=== PATIENT | female | born 1935 | race Caucasian/White ===

== ENCOUNTER 2017-01-18 17:48 | Inpatient (IN) ==
--- NOTE | 2017-01-18 18:07 | Emergency Department Report ---
General Adult HPI - General Chief complaint: Medical Emergency Stated complaint: Confusion Time Seen by Provider: 01/18/17 17:56 Source: patient Mode of arrival: ambulatory Limitations: no limitations - History of Present Illness HPI narrative: She is brought in today from [facility]. They have noticed today that she is falling asleep easily and is harder to get to participate in activities. This has been progressive over the last few days. 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 She does have an appointment scheduled on 01/28/[address] Paniagua her oncologist for evaluation and possible restart of her chemo. She has not had any fever or chills or other symptoms. She states that she is just very tired all the time. Onset (ago): day(s) Radiation: non-radiation Severity: moderate Quality: other (weakness) Consistency: constant Relieving factors: none Exacerbating factors: none Associated symptoms: confusion, malaise, other (increased frequency of urination ) Treatments prior to arrival: none - Related Data Home Medications Medication Instructions Recorded Confirmed Ascorbic Acid [Vitamin C] 1,000 mg PO DAILY #0 06/13/12 01/18/17 Pravastatin Sodium 20 mg PO HS #0 11/12/12 01/18/17 Carvedilol 12.5 mg PO BID #0 07/10/15 01/18/17 Acetaminophen [Tylenol] 325 mg PO BID #0 03/18/16 01/18/17 Acetaminophen [Tylenol] 650 mg PO HS #0 03/18/16 01/18/17 Docusate Sodium [Colace] 100 mg PO DAILY #0 03/18/16 01/18/17 Furosemide 20 mg PO DAILY #0 03/18/16 01/18/17 Loratadine 10 mg PO ACB #0 03/18/16 01/18/17 Magnesium Oxide 250 mg PO DAILY #0 tab 03/18/16 01/18/17 Potassium Chloride 10 meq PO DAILY #0 03/18/16 01/18/17 Propylene Glycol/Peg 400/Pf 1 drop BOTH EYES QID #0 03/18/16 01/18/17 [Systane Ultra 0.4-0.3% Eye Drp] Tramadol HCl 50 mg PO Q6HR PRN #0 03/18/16 01/18/17 Bisacodyl 1 supp RECTALLY DAILY PRN #0 07/09/16 01/18/17 Bismuth Subsalicylate [Kaopectate] 1 oz PO TID PRN #0 07/09/16 01/18/17 Calcium Carbonate [Tums] 1 tab PO Q4H PRN #0 07/09/16 01/18/17 FRUIT FIBER 30 ml PO WB #0 07/09/16 01/18/17 Levothyroxine Sodium 125 mcg PO ACB #0 07/09/16 01/18/17 Mag Hydrox/Aluminum Hyd/Simeth 15 ml PO QID PRN #0 07/09/16 01/18/17 [Maalox Advanced Suspension] Magnesium Hydroxide [Milk of 10 ml PO Q3D PRN #0 07/09/16 01/18/17 Magnesia] Meclizine HCl 25 mg PO Q8H PRN #0 07/09/16 01/18/17 Naphazoline/Zinc Sulf/Glycerin 1 drop BOTH EYES PRN PRN #0 07/09/16 01/18/17 [Clear Eyes Itchy Eye Rlf Drops] Nitroglycerin 0.4 mg SL PRN PRN #0 07/09/16 01/18/17 Warfarin Sodium 2 mg PO 1700 #0 07/09/16 01/18/17 Albuterol/Ipratropium [Duoneb] 1 unit AEROSOL Q6H PRN 01/18/17 01/18/17 Hydralazine [Apresoline] 10 mg PO Q8HPRN PRN 01/18/17 01/18/17 Melatonin/Pyridoxine HCl (B6) 5 mg PO HS PRN 01/18/17 01/18/17 [Melatonin 5 mg Tablet] Multivitamin with Minerals 1 each PO DAILY 01/18/17 01/18/17 [One-A-Day Maximum Formula] Oxybutynin Ir [Ditropan] 5 mg PO BID 01/18/17 01/18/17 Ranitidine [Zantac] 150 mg PO BID 01/18/17 01/18/17 Sodium Chloride [[place] Saline] 2 spray NS BID 01/18/17 01/18/17 Allergies Allergy/AdvReac Type Severity Reaction Status Date / Time codeine Allergy Unknown Verified 01/18/17 17:53 Review of Systems Constitutional: Denies: fever, chills, weakness ENT: Denies: ear pain, throat pain, congestion Cardiovascular: Denies: chest pain, palpitations, dyspnea on exertion, edema Respiratory: Denies: cough, dyspnea, wheezes Gastrointestinal: Denies: abdominal pain, nausea, vomiting, diarrhea Genitourinary: Reports: frequency Integumentary: Denies: rash Neurological: Reports: weakness. Denies: headache, numbness, paresthesias PFSH Patient Stated Medical History Multiple Sclerosis Yes Transient Ischemic Attacks ( Yes TIA) Angina Yes Cardiac Arrhythmia Yes: BRADYCARDIA Coronary Artery Disease Yes Hypertension Yes Pneumonia Yes Other GI Yes: CONSTIPATION Anemia Yes Other Hematologic Yes: hx CLL Osteoarthritis Yes Other Musculoskeletal Yes: RIB FX Shingles Yes Post Menopausal Yes CLL - Social History Smoking status: Never smoker Substance use type: does not use Alcohol intake frequency: does not drink Physical Exam - Limitations Limitations: no limitations - General General appearance: alert, in no apparent distress - Normal Exams: ENMT:: No facial trauma, nasal exudates, pharyngeal erythema, or exudates are noted Neck:: Full range of motion, without adenopathy, JVD, bruits or thyromegaly Chest/Respirations:: Clear all fowler, with good airflow, and symmetry bilaterally Cardiovascular:: Regular rate and rhythm, without murmur or gallop, Pulses 2+ all extremities, capillary refill, <2 seconds all extremities Abdomen:: Bowel sounds positive, soft, non-tender, non-distended, no hepatosplenomegaly, masses or bruits noted Lymphatic:: No lymphadenopathy, or lymphedema noted Integumentary:: No rashes, hives, or bruising noted Neurological:: Patient is alert, and oriented Psychiatric:: Patient exhibits, appropriate attention, emotion and affect - Skin Skin exam: Present: pallor Course Vital Signs Temperature 98.1 F 01/18/17 17:53 Pulse Rate 76 01/18/17 17:53 Respiratory Rate 17 01/18/17 17:53 Blood Pressure 115/56 01/18/17 17:53 Pulse Oximetry 94 01/18/17 17:53 Temperature 95.9 F L 01/20/17 08:00 Pulse Rate 81 01/20/17 08:00 Respiratory Rate 20 01/20/17 08:00 Blood Pressure 113/61 01/20/17 08:00 Pulse Oximetry 96 01/20/17 08:00 Medical Decision Making - MDM Narrative Medical decision making narrative: WBC is up to 132. Hgb is down to 7.2 today from 10.8 on 12/28/16. Did call and discuss lab results with Dr Paniagua. He will see her at her scheduled appointment time but does agree that she needs to have a blood transfusion. Discussed with Dr Gurrola who will admit and transfuse tonight. Patient's PCP is Dr Faust. - Differential Diagnosis anemia, viral process, UTI, pneumonia, electrolyte imbalance, - Lab Data Result diagrams: 01/20/17 04:30 01/20/17 04:30 Lab Results 01/18/17 01/18/17 01/18/17 Range/Units 18:25 18:25 18:25 WBC 132.4 H* (4.5-11.0) T/MM3 RBC 1.86 L (4.00-5.20) M/MM3 Hgb 7.2 L (12-16) GM/DL Hct 23.4 L (36-46) % MCV 125.8 H (80-100) UM3 MCH 38.7 H (26-34) UUG MCHC 30.8 L (31-37) GM/DL RDW Std Deviation 105.2 H (36.9-50.2) FL Plt Count 250 (130-400) T/MM3 MPV 9.4 (9.4-12.4) UM3 Immature Gran % (Auto) Not performed Neut % (Auto) Not performed Lymph % (Auto) Not performed [place] % (Auto) Not performed Eos % (Auto) Not performed Baso % (Auto) Not performed Neut # Not performed Lymph # Not performed [place] # Not performed Eos # Not performed Baso # Not performed Abs Immat Gran (auto) Not performed Neutrophils % (Manual) 5.0 L (33-66) % Lymphocytes % (Manual) 94.0 H (23-45) % Monocytes % (Manual) 1.0 (0-9.0) % Neutrophils # (Manual) 6.6 (1.8-7.7) T/MM3 Lymphocytes # (Manual) 124.5 H (1-4.8) T/MM3 Monocytes # (Manual) 1.3 H (0-0.8) T/MM3 Smudge Cells 3+ Polychromasia 2+ Poikilocytosis 3+ Anisocytosis 3+ Macrocytosis 2+ Spherocytes 2+ RBC Morph Comment Abnormal Absolute Retic (0.0300-0.0900) T/MM3 Percent Retic (0.6-1.7) % Immature Retic Fraction (3.3-14.5) % Retic Hgb Content CHr (30.8-36.6) PG Haptoglobin (36-195) mg/dL INR (0.99-1.21) Turbidity < 20 (0-20) Sodium 144 (134-144) MEQ/L Potassium 4.4 (3.6-5) MEQ/L Chloride 107 (98-107) MEQ/L Carbon Dioxide 27 (22-30) MEQ/L Anion Gap 10 (5-15) MEQ/L BUN 30.0 H (7-17) MG/DL Creatinine 1.5 H (0.7-1.2) MG/DL GFR Calculation 33 BUN/Creatinine Ratio 20 (6-26) RATIO Glucose 116 H (65-110) MG/DL Calculated Osmolality 284 H (261-280) MOSM/KG Calcium 9.1 (8.4-10.2) MG/DL Total Bilirubin 4.20 H (0.20-1.30) MG/DL Conjugated Bilirubin (0.00-0.30) MG/DL Unconjugated Bilirubin (0.00-11.10) MG/DL Icterus Index < 2 (0-7) AST 76 H (14-36) U/L ALT 36 (9-52) U/L Alkaline Phosphatase 85 (38-126) U/L Lactate Dehydrogenase (313-618) U/L Troponin I 0.013 (0-0.12) ng/ml Total Protein 6.5 (6.3-8.2) G/DL Albumin 4.5 (3.5-5.0) G/DL Globulin 2.0 L (2.4-3.6) G/DL Albumin/Globulin Ratio 2.3 H (1.1-2.2) RATIO Specimen Hemolysis < 15 (0-25) Ur Collection Type Urine, clean catch Urine Color Yellow (YELLOW) Urine Clarity Clear Urine pH 5.5 (5.0-8.0) Ur Specific [place] 1.020 (1.015-1.025) Urine Protein Negative (NEGATIVE) Urine Glucose (UA) Negative (NEGATIVE) Urine Ketones Negative (NEGATIVE) Urine Occult Blood Trace-intact (NEGATIVE) Urine Nitrate Negative (NEGATIVE) Urine Bilirubin Negative (NEGATIVE) Urine Urobilinogen 0.2 (NORMAL) EU/DL Ur Leukocyte Esterase Negative (NEGATIVE) Urinalysis Comment Microscopic not ind. Crossmatch (AHG) 01/18/17 01/18/17 01/19/17 Range/Units 18:25 21:37 05:14 WBC 114.7 H* (4.5-11.0) T/MM3 RBC 1.74 L (4.00-5.20) M/MM3 Hgb 6.7 L (12-16) GM/DL Hct 21.9 L (36-46) % MCV 125.9 H (80-100) UM3 MCH 38.5 H (26-34) UUG MCHC 30.6 L (31-37) GM/DL RDW Std Deviation 103.6 H (36.9-50.2) FL Plt Count 224 (130-400) T/MM3 MPV 9.5 (9.4-12.4) UM3 Immature Gran % (Auto) Not performed Neut % (Auto) Not performed Lymph % (Auto) Not performed [place] % (Auto) Not performed Eos % (Auto) Not performed Baso % (Auto) Not performed Neut # Not performed Lymph # Not performed [place] # Not performed Eos # Not performed Baso # Not performed Abs Immat Gran (auto) Not performed Neutrophils % (Manual) 7.0 L (33-66) % Lymphocytes % (Manual) 92.0 H (23-45) % Monocytes % (Manual) 1.0 (0-9.0) % Neutrophils # (Manual) 8.0 H (1.8-7.7) T/MM3 Lymphocytes # (Manual) 105.5 H (1-4.8) T/MM3 Monocytes # (Manual) 1.1 H (0-0.8) T/MM3 Smudge Cells 3+ Polychromasia 2+ Poikilocytosis 3+ Anisocytosis 3+ Macrocytosis 2+ Spherocytes 2+ RBC Morph Comment Abnormal Absolute Retic (0.0300-0.0900) T/MM3 Percent Retic (0.6-1.7) % Immature Retic Fraction (3.3-14.5) % Retic Hgb Content CHr (30.8-36.6) PG Haptoglobin (36-195) mg/dL INR 1.91 H (0.99-1.21) Turbidity (0-20) Sodium (134-144) MEQ/L Potassium (3.6-5) MEQ/L Chloride (98-107) MEQ/L Carbon Dioxide (22-30) MEQ/L Anion Gap (5-15) MEQ/L BUN (7-17) MG/DL Creatinine (0.7-1.2) MG/DL GFR Calculation BUN/Creatinine Ratio (6-26) RATIO Glucose (65-110) MG/DL Calculated Osmolality (261-280) MOSM/KG Calcium (8.4-10.2) MG/DL Total Bilirubin (0.20-1.30) MG/DL Conjugated Bilirubin (0.00-0.30) MG/DL Unconjugated Bilirubin (0.00-11.10) MG/DL Icterus Index (0-7) AST (14-36) U/L ALT (9-52) U/L Alkaline Phosphatase (38-126) U/L Lactate Dehydrogenase (313-618) U/L Troponin I (0-0.12) ng/ml Total Protein (6.3-8.2) G/DL Albumin (3.5-5.0) G/DL Globulin (2.4-3.6) G/DL Albumin/Globulin Ratio (1.1-2.2) RATIO Specimen Hemolysis (0-25) Ur Collection Type Urine Color (YELLOW) Urine Clarity Urine pH (5.0-8.0) Ur Specific [place] (1.015-1.025) Urine Protein (NEGATIVE) Urine Glucose (UA) (NEGATIVE) Urine Ketones (NEGATIVE) Urine Occult Blood (NEGATIVE) Urine Nitrate (NEGATIVE) Urine Bilirubin (NEGATIVE) Urine Urobilinogen (NORMAL) EU/DL Ur Leukocyte Esterase (NEGATIVE) Urinalysis Comment Crossmatch (AHG) See Detail 01/19/17 01/19/17 01/19/17 Range/Units 05:14 12:27 12:27 WBC (4.5-11.0) T/MM3 RBC (4.00-5.20) M/MM3 Hgb (12-16) GM/DL Hct (36-46) % MCV (80-100) UM3 MCH (26-34) UUG MCHC (31-37) GM/DL RDW Std Deviation (36.9-50.2) FL Plt Count (130-400) T/MM3 MPV (9.4-12.4) UM3 Immature Gran % (Auto) Neut % (Auto) Lymph % (Auto) [place] % (Auto) Eos % (Auto) Baso % (Auto) Neut # Lymph # [place] # Eos # Baso # Abs Immat Gran (auto) Neutrophils % (Manual) (33-66) % Lymphocytes % (Manual) (23-45) % Monocytes % (Manual) (0-9.0) % Neutrophils # (Manual) (1.8-7.7) T/MM3 Lymphocytes # (Manual) (1-4.8) T/MM3 Monocytes # (Manual) (0-0.8) T/MM3 Smudge Cells Polychromasia Poikilocytosis Anisocytosis Macrocytosis Spherocytes RBC Morph Comment Absolute Retic 0.3432 H (0.0300-0.0900) T/MM3 Percent Retic 20.6 H (0.6-1.7) % Immature Retic Fraction 34.3 H (3.3-14.5) % Retic Hgb Content CHr 40.2 H (30.8-36.6) PG Haptoglobin 2 L (36-195) mg/dL INR (0.99-1.21) Turbidity < 20 (0-20) Sodium 145 H (134-144) MEQ/L Potassium 4.3 (3.6-5) MEQ/L Chloride 109 H (98-107) MEQ/L Carbon Dioxide 29 (22-30) MEQ/L Anion Gap 7 (5-15) MEQ/L BUN 30.0 H (7-17) MG/DL Creatinine 1.3 H D (0.7-1.2) MG/DL GFR Calculation 39 BUN/Creatinine Ratio 23 (6-26) RATIO Glucose 108 (65-110) MG/DL Calculated Osmolality 286 H (261-280) MOSM/KG Calcium 9.1 (8.4-10.2) MG/DL Total Bilirubin 4.00 H (0.20-1.30) MG/DL Conjugated Bilirubin 0.00 (0.00-0.30) MG/DL Unconjugated Bilirubin 3.40 (0.00-11.10) MG/DL Icterus Index < 2 (0-7) AST 70 H (14-36) U/L ALT 30 (9-52) U/L Alkaline Phosphatase 72 (38-126) U/L Lactate Dehydrogenase 2465 H (313-618) U/L Troponin I (0-0.12) ng/ml Total Protein 5.7 L (6.3-8.2) G/DL Albumin 3.9 (3.5-5.0) G/DL Globulin 1.8 L (2.4-3.6) G/DL Albumin/Globulin Ratio 2.2 (1.1-2.2) RATIO Specimen Hemolysis < 15 (0-25) Ur Collection Type Urine Color (YELLOW) Urine Clarity Urine pH (5.0-8.0) Ur Specific [place] (1.015-1.025) Urine Protein (NEGATIVE) Urine Glucose (UA) (NEGATIVE) Urine Ketones (NEGATIVE) Urine Occult Blood (NEGATIVE) Urine Nitrate (NEGATIVE) Urine Bilirubin (NEGATIVE) Urine Urobilinogen (NORMAL) EU/DL Ur Leukocyte Esterase (NEGATIVE) Urinalysis Comment Crossmatch (AHG) Disposition Clinical Impression: Anemia Qualifiers: Anemia type: unspecified type Qualified Code(s): D64.9 - Anemia, unspecified Disposition: 02 To [facility] Condition: Stable Time of Disposition: 18:15 - Seen By: midlevel
[2017-01-18] MEDS: SALINE FLUSH 10ml SYRINGE IVF PRN ×2 (18:32→22:55)
[2017-01-18] MEDS ORDERED: ONDANSETRON 4 MG/2 ML INJECTION IVP PRN (21:16)
[2017-01-18] MEDS ORDERED: ACETAMINOPHEN 325 MG TABLET PO PRN (21:16)
[2017-01-18] MEDS ORDERED: NS FLUSH BAG 500ml IV PRN ×2 (21:48→22:13)
--- NOTE | 2017-01-18 21:50 | History & Physical Report ---
History of Present Illness Date: 01/18/17 Chief complaint: sleepiness HPI: The pt is a 81 yo with a known history of CLL who stopped treatment 2 years ago but recently on 12/28/16 noted that her WBC was elevated again to 85,000. Over the past 2 days, the pt c/o sleeping all the time and is having trouble staying awake, become dyspneic with minimal exertion. It was noted in the ER that her hgb was 7.2 ( 10.8 3 weeks ago). Review of Systems - Constitutional Constitutional: Present: as per HPI, anorexia, daytime sleepiness, fatigue, lethargy. Absent: fever(s), headache(s) - Cardiovascular Cardiovascular: Absent: chest pain, palpitations, syncope, edema - Respiratory Respiratory: Present: dyspnea. Absent: cough - Gastrointestinal Gastrointestinal: Absent: abdominal pain, constipation, diarrhea - Musculoskeletal Musculoskeletal: Absent: back pain PFSH CLL CAD, s/p stent HTN CVA/ multiple TIA Family History: CAD/ HTN parents - Social History Smoking status: Never smoker Alcohol intake: never Housing: assisted living facility Household members: none Medications Home Medications Medication Instructions Recorded Confirmed Type Ascorbic Acid [Vitamin C] 1,000 mg PO DAILY #0 06/13/12 01/18/17 History Pravastatin Sodium 20 mg PO HS #0 11/12/12 01/18/17 History Carvedilol 12.5 mg PO BID #0 07/10/15 01/18/17 History Acetaminophen [Tylenol] 325 mg PO BID #0 03/18/16 01/18/17 History Acetaminophen [Tylenol] 650 mg PO HS #0 03/18/16 01/18/17 History Docusate Sodium [Colace] 100 mg PO DAILY #0 03/18/16 01/18/17 History Furosemide 20 mg PO DAILY #0 03/18/16 01/18/17 History Loratadine 10 mg PO ACB #0 03/18/16 01/18/17 History Magnesium Oxide 250 mg PO DAILY #0 tab 03/18/16 01/18/17 History Potassium Chloride 10 meq PO DAILY #0 03/18/16 01/18/17 History Propylene Glycol/Peg 400/Pf 1 drop BOTH EYES QID #0 03/18/16 01/18/17 History [Systane Ultra 0.4-0.3% Eye Drp] Tramadol HCl 50 mg PO Q6HR PRN #0 03/18/16 01/18/17 History Bisacodyl 1 supp RECTALLY DAILY PRN #0 07/09/16 01/18/17 History Bismuth Subsalicylate [Kaopectate] 1 oz PO TID PRN #0 07/09/16 01/18/17 History Calcium Carbonate [Tums] 1 tab PO Q4H PRN #0 07/09/16 01/18/17 History FRUIT FIBER 30 ml PO WB #0 07/09/16 01/18/17 History Levothyroxine Sodium 125 mcg PO ACB #0 07/09/16 01/18/17 History Mag Hydrox/Aluminum Hyd/Simeth 15 ml PO QID PRN #0 07/09/16 01/18/17 History [Maalox Advanced Suspension] Magnesium Hydroxide [Milk of 10 ml PO Q3D PRN #0 07/09/16 01/18/17 History Magnesia] Meclizine HCl 25 mg PO Q8H PRN #0 07/09/16 01/18/17 History Naphazoline/Zinc Sulf/Glycerin 1 drop BOTH EYES PRN PRN #0 07/09/16 01/18/17 History [Clear Eyes Itchy Eye Rlf Drops] Nitroglycerin 0.4 mg SL PRN PRN #0 07/09/16 01/18/17 History Warfarin Sodium 2 mg PO 1700 #0 07/09/16 01/18/17 History Albuterol/Ipratropium [Duoneb] 1 unit AEROSOL Q6H PRN 01/18/17 01/18/17 History Hydralazine [Apresoline] 10 mg PO Q8HPRN PRN 01/18/17 01/18/17 History Melatonin/Pyridoxine HCl (B6) 5 mg PO HS PRN 01/18/17 01/18/17 History [Melatonin 5 mg Tablet] Multivitamin with Minerals 1 each PO DAILY 01/18/17 01/18/17 History [One-A-Day Maximum Formula] Oxybutynin Ir [Ditropan] 5 mg PO BID 01/18/17 01/18/17 History Ranitidine [Zantac] 150 mg PO BID 01/18/17 01/18/17 History Sodium Chloride [[place] Saline] 2 spray NS BID 01/18/17 01/18/17 History Allergies Allergy/AdvReac Type Severity Reaction Status Date / Time codeine Allergy Unknown Verified 01/18/17 17:53 Exam Vital Signs: Temperature 98.1 F 01/18/17 17:53 Pulse Rate 79 01/18/17 19:00 Respiratory Rate 17 01/18/17 19:00 Blood Pressure 128/61 01/18/17 19:00 Pulse Oximetry 94 01/18/17 19:00 - Constitutional Present: no acute distress, well nourished - Routine HEENT Exam Head: Present: normocephalic Eye: Present: conjunctivae pink - Routine Neck Exam Present: supple - Routine Respiratory Exam Present: CTA bilaterally - Routine Cardiovascular Exam Present: RRR, no murmur - Routine Abdominal Exam Present: soft, normoactive bowel sounds, non distended, non tender Results - Labs CBC & Chem 7: 01/18/17 18:25 01/18/17 18:25 Assessment and Plan (1) CLL (chronic lymphoid leukemia) in relapse Current visit: Yes Status: Acute 01/18/17 21:54 has appointment with Harish on [place] on Jan.28, ER contacted him and he recommends no treatment at this time. (2) Anemia Current visit: Yes Status: Acute 01/18/17 21:55 transfusing one unit , recheck level in am. (3) HTN (hypertension) Current visit: Yes Status: Acute 01/18/17 21:55 monitor, restart home meds. (4) HTN (hypertension) Current visit: Yes Status: Acute DVT Prophylaxis: SCD's GI Prophylaxis: Protonix Resuscitation Status: Full Code Hospital Course Summary Disclaimer: The visit summary below is not to be considered part of the above Progress Note.
--- NOTE | 2017-01-19 08:06 | XRay Report ---
INDICATION: dyspnea PROCEDURE: CHEST 2-VIEWS UPRIGHT (PA & LAT) Encounter: Initial COMPARISON: July 09, 2016 Findings: The lungs are stable in appearance without new focal airspace consolidation. There is no pleural effusion or pneumothorax. The heart size, pulmonary vascularity and mediastinal contours are unchanged. IMPRESSION: Stable appearance of the chest without acute cardiopulmonary disease. .
[2017-01-19 08:10] VITALS: BMI 30.3
[2017-01-19] MEDS ORDERED: CALCIUM CARBONATE Chewable 750mg TABLET PO PRN ×2 (12:03→13:15)
[2017-01-19] MEDS ORDERED: ALBUTEROL/IPRATROPIUM 2.5mg-0.5mg/3ml NEB AEROSOL PRN (12:03)
[2017-01-19] MEDS ORDERED: MELATONIN 5 MG TABLET PO PRN (12:03)
[2017-01-19] MEDS ORDERED: PredniSONE 20 MG TABLET PO ONE (13:32)
[2017-01-19] MEDS ORDERED: PNEUMOCOCCAL 13 VACCINE 0.5ml INJECTION IM ONE (14:29)
--- NOTE | 2017-01-19 16:03 | History & Physical Report ---
History of Present Illness Date: 01/19/17 Chief complaint: excessive drowsiness, weakness HPI: The pt is a 81 yo with a known history of CLL monitored by Dr. Clinton Paniagua with last labs on 12/28/16 when WBC was elevated at 85.9K and hemoglobin was 10.8. Over the past 3 days the pt has c/o sleeping all the time and is having generalized weakness, become dyspneic with minimal exertion. She additionally reports that her urine has been dark yellow and that her skin has been yellow. She denied lightheadedness, chest pain, palpitations, or falls. She is not aware of any blood loss specifically denying melena, hematuria, or hematemesis. She denies any of the presenting symptoms prior to 3 days ago. In the emergency room hemoglobin was 7.2 and the patient was hospitalized for symptomatic anemia and possible blood transfusion. Bilirubin on admission was elevated at 4.2 and MCV 125.8. White count had increased to 132.4 with 94% lymphocytes. Review of Systems Comprehensive ROS: completed and no additional positive findings except those as stated (chronic hearing loss, has a hearing aid but doesn't use it; generalized weakness which patient attributes to a history of multiple sclerosis , no focal sensory deficits. Patient has a chronic cough since pneumonia last year with chronic sputum production. She denied myalgias or arthralgias other than chronic sacral pain as noted by Dr. Rouse. Remainder of review of systems as previously recorded by Dr. 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 - Social History Smoking status: Never smoker Substance use type: does not use Alcohol intake frequency: does not drink Current occupational status: retired (missionary) Current residence: Assisted Living ([facility]) Social history: PCP-Dr. Lavonne Faust Hematology-Dr. Clinton Paniagua DPOA-daughter Nitza Storm CODE STATUS-DO NOT RESUSCITATE Medications Home Medications Medication Instructions Recorded Confirmed Type Ascorbic Acid [Vitamin C] 1,000 mg PO DAILY #0 06/13/12 01/18/17 History Pravastatin Sodium 20 mg PO HS #0 11/12/12 01/18/17 History Carvedilol 12.5 mg PO BID #0 07/10/15 01/18/17 History Acetaminophen [Tylenol] 325 mg PO BID #0 03/18/16 01/18/17 History Acetaminophen [Tylenol] 650 mg PO HS #0 03/18/16 01/18/17 History Docusate Sodium [Colace] 100 mg PO DAILY #0 03/18/16 01/18/17 History Furosemide 20 mg PO DAILY #0 03/18/16 01/18/17 History Loratadine 10 mg PO ACB #0 03/18/16 01/18/17 History Magnesium Oxide 250 mg PO DAILY #0 tab 03/18/16 01/18/17 History Potassium Chloride 10 meq PO DAILY #0 03/18/16 01/18/17 History Propylene Glycol/Peg 400/Pf 1 drop BOTH EYES QID #0 03/18/16 01/18/17 History [Systane Ultra 0.4-0.3% Eye Drp] Tramadol HCl 50 mg PO Q6HR PRN #0 03/18/16 01/18/17 History Bisacodyl 1 supp RECTALLY DAILY PRN #0 07/09/16 01/18/17 History Bismuth Subsalicylate [Kaopectate] 1 oz PO TID PRN #0 07/09/16 01/18/17 History Calcium Carbonate [Tums] 1 tab PO Q4H PRN #0 07/09/16 01/18/17 History FRUIT FIBER 30 ml PO WB #0 07/09/16 01/18/17 History Levothyroxine Sodium 125 mcg PO ACB #0 07/09/16 01/18/17 History Mag Hydrox/Aluminum Hyd/Simeth 15 ml PO QID PRN #0 07/09/16 01/18/17 History [Maalox Advanced Suspension] Magnesium Hydroxide [Milk of 10 ml PO Q3D PRN #0 07/09/16 01/18/17 History Magnesia] Meclizine HCl 25 mg PO Q8H PRN #0 07/09/16 01/18/17 History Naphazoline/Zinc Sulf/Glycerin 1 drop BOTH EYES PRN PRN #0 07/09/16 01/18/17 History [Clear Eyes Itchy Eye Rlf Drops] Nitroglycerin 0.4 mg SL PRN PRN #0 07/09/16 01/18/17 History Warfarin Sodium 2 mg PO 1700 #0 07/09/16 01/18/17 History Albuterol/Ipratropium [Duoneb] 1 unit AEROSOL Q6H PRN 01/18/17 01/18/17 History Hydralazine [Apresoline] 10 mg PO Q8HPRN PRN 01/18/17 01/18/17 History Melatonin/Pyridoxine HCl (B6) 5 mg PO HS PRN 01/18/17 01/18/17 History [Melatonin 5 mg Tablet] Multivitamin with Minerals 1 each PO DAILY 01/18/17 01/18/17 History [One-A-Day Maximum Formula] Oxybutynin Ir [Ditropan] 5 mg PO BID 01/18/17 01/18/17 History Ranitidine [Zantac] 150 mg PO BID 01/18/17 01/18/17 History Sodium Chloride [Sloughhouse Saline] 2 spray NS BID 01/18/17 01/18/17 History Allergies Allergy/AdvReac Type Severity Reaction Status Date / Time codeine Allergy Unknown Verified 01/18/17 17:53 Exam Vital Signs: Temperature 96.1 F L 01/19/17 07:59 Pulse Rate 83 01/19/17 07:59 Respiratory Rate 16 01/19/17 13:40 Blood Pressure 114/61 01/19/17 07:59 Pulse Oximetry 95 01/19/17 13:40 EXAM: General-drowsy female, NAD; has to be repetitively stimulated to respond to questions HEENT-PERRL, right exotropia, conjunctiva clear, scleral icterus, facial structures symmetric, oropharynx clear, neck supple and without adenopathy Lungs-respirations nonlabored, decreased airflow but clear Cardiac-regular rhythm, S1-S2 Abd-soft, nontender, without palpable mass Ext-without edema Skin-mild jaundice/pallor MS-minor degenerative changes small joints of the hands, no active synovitis Neuro-proximal lower extremity weakness, distal strength good, no drift upper extremities, no tremors, normal motor tone; sensation intact to light touch 4 extremities; cranial nerves notable for right exotropia and mild right ptosis. 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 Blood bank unable to match blood to date due to antibodies. Discussed with Dr. Paniagua-initiate steroids with prednisone 1 mg/kg in split doses. Will hold off on transfusion at this time. Haptoglobin and reticulocyte count pending. Continue to monitor hemoglobin, IV fluids if needed although oral intake improved this afternoon. Patient is on chronic warfarin therapy-indication unclear at present, call placed to her son to clarify. Continue in the intervening time. Continue beta vazquez for coronary disease/HTN. PT/OT consult Patient converted to inpatient status due to presence of dyspnea in conjunction with worsening anemia. Old records/outpatient records reviewed, x-ray/EKG reviewed by myself, discussed with Dr. Paniagua, laboratory data reviewed. Sepsis Assessment - Evaluation Sepsis screening result: No Definite Risk Hospital Course Summary Disclaimer: The visit summary below is not to be considered part of the above Progress Note. Hospital Course: 01/19/17 16:39-admission Presentation consistent with evolving anemia; data supports development of hemolytic anemia in conjunction with worsening CLL. Blood bank unable to match blood to date due to antibodies. Discussed with Dr. Paniagua-initiate steroids with prednisone 1 mg/kg in split doses. Will hold off on transfusion at this time. Haptoglobin and reticulocyte count pending. Continue to monitor hemoglobin, IV fluids if needed although oral intake improved this afternoon. Patient is on chronic warfarin therapy-indication unclear at present, call placed to her son to clarify. Continue in the intervening time. Continue beta vazquez for coronary disease/HTN. PT/OT consult Patient converted to inpatient status due to presence of dyspnea in conjunction with worsening anemia.
[2017-01-19] MEDS ORDERED: TRAMADOL 50 MG TABLET PO PRN (16:35)
[2017-01-19] MEDS ORDERED: WARFARIN 2 MG TABLET PO ONE (17:00)
--- NOTE | 2017-01-19 17:03 | Pharmacy Consult ---
Pharmacy Consult-Warfarin - Laboratory Information 81yo F, wt 75.3kg, admitted with hemolytic anemia, jaundice 2ndary to CLL. Comorbidities of HTN, CAD, CVA, Hypokalemia, Alzheimer's Dementia. Home dose of Warfarin reported as 2mg po daily, last taken on 01/18 1700. INR = 1.91 No bridge therapy at this time. No drug-drug interactions noted. Will give Warfarin 2mg today. INR's daily until therapeutic range achieved. Target INR range = 2-3 Thank you
[2017-01-19] MEDS: PredniSONE 10 MG TABLET PO SCH ×2 (17:06→21:36)
[2017-01-19] MEDS: SYSTANE EYE DROPS 0.7ml EACH EYE SCH ×3 (17:07→21:43)
[2017-01-19] MEDS: CARVEDILOL 25 MG TABLET PO SCH (17:40)
[2017-01-19] MEDS ORDERED: PNEUMOCOCCAL VAC ADMIN CHARGE INJ ONE (18:45)
[2017-01-19] MEDS: PRAVASTATIN 20 MG TABLET PO SCH (21:42)
[2017-01-19] MEDS: SALINE FLUSH 10ml SYRINGE IVF PRN (21:43)
[2017-01-19] MEDS: RANITIDINE 150 MG TABLET PO SCH (21:43)
[2017-01-20] MEDS: LORATADINE 10 MG TABLET PO SCH (06:27)
[2017-01-20] MEDS: LEVOTHYROXINE 125 MCG TABLET PO SCH (06:27)
[2017-01-20] MEDS: SALINE FLUSH 10ml SYRINGE IVF PRN ×2 (06:31→21:26)
[2017-01-20] MEDS: PredniSONE 10 MG TABLET PO SCH ×2 (08:04→17:17)
[2017-01-20] MEDS: CARVEDILOL 25 MG TABLET PO SCH ×2 (08:04→17:17)
[2017-01-20] MEDS: MAGNESIUM OXIDE 400 MG TABLET PO SCH (08:58)
[2017-01-20] MEDS: SENNA + DOCUSATE TABLET PO SCH (08:59)
[2017-01-20] MEDS: RANITIDINE 150 MG TABLET PO SCH ×2 (08:59→21:24)
[2017-01-20] MEDS: POLYETHYL GLYCOL 3350 17gm PACKET PO SCH (08:59)
[2017-01-20] MEDS: SYSTANE EYE DROPS 0.7ml EACH EYE SCH ×4 (08:59→21:20)
--- NOTE | 2017-01-20 09:03 | Pharmacy Consult ---
Pharmacy Consult-Warfarin - Laboratory Information 01/20/17 04:30 INR 1.76 H 81yo F, wt 75.3kg, admitted with hemolytic anemia, jaundice 2ndary to CLL. Comorbidities of HTN, CAD, CVA, Hypokalemia, Alzheimer's Dementia. Home dose of Warfarin reported as 2mg po daily, last taken on 01/18 1700. No bridge therapy at this time. No drug-drug interactions noted. Received Warfarin 2mg yesterday late afternoon. INR today a little lower. Will give Warfarin 3mg. INR's daily until therapeutic range achieved. Target INR range = 2-3 Thank you
--- NOTE | 2017-01-20 11:16 | Progress Note ---
<Megan Long - Last Filed: 01/20/17 11:12> Subjective: Kateryna is feeling much better today. She's more alert (she slept most of the day yesterday) and she has more of an appetite. Her [id number] comments that she doesn't appear as yellow. Kateryna denies feeling short of breath today. Her goal is to walk twice today. She notes a "big" stomach, but adds that this isn't new. Objective Vital signs: Temperature 95.9 F L 01/20/17 08:00 Pulse Rate 81 01/20/17 08:00 Respiratory Rate 20 01/20/17 08:00 Blood Pressure 113/61 01/20/17 08:00 Pulse Oximetry 96 01/20/17 08:00 Oxygen Delivery Method Room Air Height/Weight/BMI: Weight 74.9 kg - Constitutional Present: no acute distress, well nourished, well developed - Routine HEENT Exam Eye: Absent: PERRL (right exotropia; keeps right eyelid closed preferentially during constipation) ENT: Present: mucous membranes moist, oropharynx clear - Routine Respiratory Exam Present: CTA bilaterally - Routine Cardiovascular Exam Present: RRR, S1, S2, murmur (2-3/6) - Routine Abdominal Exam Present: soft, normoactive bowel sounds, non tender, distended - Routine Extremities Exam Present: no edema, pulses intact, normal capillary refill - Routine Musculoskeletal Exam Musculoskeletal: Present: no clubbing or cyanosis - Routine Skin Exam Present: intact, dry, warm, jaundice (mild) - Routine Neurological Exam Present: alert, oriented X3 - Routine Psychiatric Exam Present: normal affect, normal thought process, cooperative Results - Labs CBC & Chem 7: 01/20/17 04:30 01/20/17 04:30 Assessment and Plan (1) CLL (chronic lymphoid 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 Carey. Continue prednisone for hemolytic anemia. She is no longer feeling dyspneic, and is more awake today. Hemoglobin has improved slightly to 6.9. Haptoglobin was markedly low at 2 mg/dL, and absolute reticulocyte count was elevated at 0.34, percent reticulocyte was also high at 20.6, immature reticulocyte fraction was high at 34.3. Iron, TIBC and percent sat, and vitamin B12 are pending. Her total bilirubin was not assessed today. White count has increased from 114-146, which is highly suspected to be a steroid effect. Lymphocytes have remained stable. INR still subtherapeutic at 1.76. The patient is on Coumadin for paroxysmal atrial fibrillation. Echocardiogram in 2014 showed an EF of 65%, grade 2, LVDD, mild valvular disease, and mild pulmonary hypertension with pulmonary artery pressure 37 mmHg. Her student life coordinator is Dr. Madrid. Admission EKG reviewed: She is in sinus rhythm. High risk med (Coumadin) in conjunction with anemia. Sepsis Assessment - Evaluation Sepsis screening result: No Definite Risk Hospital Course Summary Disclaimer: The visit summary below is not to be considered part of the above Progress Note. Hospital Course: 01/19/17 16:39-admission Presentation consistent with evolving anemia; data supports development of hemolytic anemia in conjunction with worsening CLL. Blood bank unable to match blood to date due to antibodies. Discussed with Dr. Paniagua-initiate steroids with prednisone 1 mg/kg in split doses. Will hold off on transfusion at this time. Haptoglobin and reticulocyte count pending. Continue to monitor hemoglobin, IV fluids if needed although oral intake improved this afternoon. Patient is on chronic warfarin therapy-indication unclear at present, call placed to her son to clarify. Continue in the intervening time. Continue beta vazquez for coronary disease/HTN. PT/OT consult Patient converted to inpatient status due to presence of dyspnea in conjunction with worsening anemia. 01/20/17. Continue Prednisone for hemolytic anemia. She is no longer feeling dyspneic, and is more awake today. Hemoglobin has improved slightly to 6.9. Haptoglobin was markedly low at 2 mg/dL, and absolute reticulocyte count was elevated at 0.34, percent reticulocyte was also high at 20.6, immature reticulocyte fraction was high at 34.3. Iron, TIBC and percent sat, and vitamin B12 are pending. Her total bilirubin was not assessed today. White count has increased from 114-146, which is highly suspected to be a steroid effect. Lymphocytes have remained stable. INR still subtherapeutic at 1.76. The patient is on Coumadin for paroxysmal atrial fibrillation. Echocardiogram in 2014 showed an EF of 65%, grade 2, LVDD, mild valvular disease, and mild pulmonary hypertension with pulmonary artery pressure 37 mmHg. Her student life coordinator is Dr. Madrid. Admission EKG reviewed: She is in sinus rhythm. 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 I reviewed the chart, the patient's history, and the COATING MACHINE FEEDER/PA's documented findings as above. We discussed and formulated the assessment and plan as above with additions as below: Mrs. Mtz reports feeling much better today and reports that she is going to go walking and that she was able to eat last night and again this morning. Her [id number] indicated that her color looks better. Patient denies dyspnea or chest pain. NAD, alert Respirations are nonlabored with good airflow, faint crackles at the bases bilaterally Mild icterus-more notable in the sclera and skin today. Hemoglobin stable overnight, white count up consistent with steroid administration. Continue to monitor cautiously. Reassess liver enzymes in the morning. Haptoglobin 2, 20.6% reticulocytes (40.2% corrected for hemoglobin) Hospital Course Summary Disclaimer: The visit summary below is not to be considered part of the above Progress Note.
[2017-01-20] MEDS ORDERED: WARFARIN 3 MG TABLET PO SCH (12:00)
[2017-01-20] MEDS: PRAVASTATIN 20 MG TABLET PO SCH (22:02)
[2017-01-21] MEDS: LORATADINE 10 MG TABLET PO SCH (06:16)
[2017-01-21] MEDS: LEVOTHYROXINE 125 MCG TABLET PO SCH (06:16)
--- NOTE | 2017-01-21 07:27 | Pharmacy Consult ---
Pharmacy Consult-Warfarin - Laboratory Information 01/20/17 01/21/17 04:30 04:01 INR 1.76 H 2.25 H - Consult Information Ordered warfarin 2.5mg po at noon today. Will continue to monitor. Thank you.
[2017-01-21] MEDS: PredniSONE 10 MG TABLET PO SCH ×2 (08:46→18:27)
[2017-01-21] MEDS: MAGNESIUM OXIDE 400 MG TABLET PO SCH (08:46)
[2017-01-21] MEDS: RANITIDINE 150 MG TABLET PO SCH ×2 (08:46→22:08)
[2017-01-21] MEDS: SENNA + DOCUSATE TABLET PO SCH (08:47)
[2017-01-21] MEDS: CARVEDILOL 25 MG TABLET PO SCH ×2 (08:47→18:27)
[2017-01-21] MEDS: SALINE FLUSH 10ml SYRINGE IVF PRN ×2 (08:48→22:09)
[2017-01-21] MEDS: SYSTANE EYE DROPS 0.7ml EACH EYE SCH ×4 (08:49→22:09)
[2017-01-21] MEDS: POLYETHYL GLYCOL 3350 17gm PACKET PO SCH (08:49)
--- NOTE | 2017-01-21 10:54 | Progress Note ---
<Megan Long - Last Filed: 01/21/17 10:51> Subjective: I spoke with Kateryna's daughter in law, who stated that Kateryna has been having a good morning. She ate an excellent breakfast, has been up and moving around, hasn't appeared short of breath. She's her usual "spunky" self. We reviewed lab values and discussed indication for Coumadin and risk:benefit. I then saw Kateryna , who was resting in bed. She opened her eyes immediately when I entered the room. She smiled but didn't remember me from yesterday. She states that after her bath this morning she was in the chair for 2-3 hours, so now is feeling tired. She denies dyspnea or chest pain. No abdominal pain or nausea. Objective Vital signs: Temperature 97.2 F 01/21/17 07:31 Pulse Rate 72 01/21/17 07:31 Respiratory Rate 18 01/21/17 07:31 Blood Pressure 109/60 01/21/17 07:31 Pulse Oximetry 97 01/21/17 07:31 Oxygen Delivery Method Room Air Height/Weight/BMI: Weight 75.3 kg - Constitutional Present: no acute distress, well nourished, well developed - Routine HEENT Exam Eye: Present: conjunctival icterus (faint) ENT: Present: mucous membranes moist, oropharynx clear - Routine Respiratory Exam Present: CTA bilaterally (listened anteriorly) - Routine Cardiovascular Exam Present: S1, S2, murmur (3/6 systolic) - Routine Abdominal Exam Present: soft, normoactive bowel sounds, non tender - Routine Extremities Exam Present: no edema, pulses intact - Routine Skin Exam Present: intact, dry, pallor, warm - Routine Neurological Exam Present: alert - Routine Psychiatric Exam Present: normal affect, normal thought process, cooperative Results - Labs CBC & Chem 7: 01/21/17 04:01 01/21/17 04:01 Assessment and Plan (1) CLL (chronic lymphoid 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 History CAD, TIAs, and CVA Hypokalemia-not POA Dementia, Alzheimer's Plan hgb decreased to 6.6, though no significant clinical changes noted in patient assessment. Iron level -- 80. INR therapeutic today. [id number] reports hx of repeated TIA/stroke and would thinks the risks of being off Coumadin are too high. WBC elevated due to CLL and steroid use. LDH decreased slightly. Total bilirubin trending down - 2.2 today. K has been gradually increasing, up to 5.0 today. She's not on any potassium supplementation or SURINDER/ARB. Home meds reviewed - Lasix (and KDur) have not been restarted - will start Lasix today. Repeat BMP in am. Discussed with Dr. Carey. High risk medication in use (Coumadin) Sepsis Assessment - Evaluation Sepsis screening result: No Definite Risk Hospital Course Summary Disclaimer: The visit summary below is not to be considered part of the above Progress Note. Hospital Course: 01/19/17 16:39-admission Presentation consistent with evolving anemia; data supports development of hemolytic anemia in conjunction with worsening CLL. Blood bank unable to match blood to date due to antibodies. Discussed with Dr. Paniagua-initiate steroids with prednisone 1 mg/kg in split doses. Will hold off on transfusion at this time. Haptoglobin and reticulocyte count pending. Continue to monitor hemoglobin, IV fluids if needed although oral intake improved this afternoon. Patient is on chronic warfarin therapy-indication unclear at present, call placed to her son to clarify. Continue in the intervening time. Continue beta vazquez for coronary disease/HTN. PT/OT consult Patient converted to inpatient status due to presence of dyspnea in conjunction with worsening anemia. 01/20/17. Continue Prednisone for hemolytic anemia. She is no longer feeling dyspneic, and is more awake today. Hemoglobin has improved slightly to 6.9. Haptoglobin was markedly low at 2 mg/dL, and absolute reticulocyte count was elevated at 0.34, percent reticulocyte was also high at 20.6, immature reticulocyte fraction was high at 34.3. Iron, TIBC and percent sat, and vitamin B12 are pending. Her total bilirubin was not assessed today. White count has increased from 114-146, which is highly suspected to be a steroid effect. Lymphocytes have remained stable. INR still subtherapeutic at 1.76. The patient is on Coumadin for paroxysmal atrial fibrillation. Echocardiogram in 2014 showed an EF of 65%, grade 2, LVDD, mild valvular disease, and mild pulmonary hypertension with pulmonary artery pressure 37 mmHg. Her director of counterintelligence is Dr. Madrid. Admission EKG reviewed: She is in sinus rhythm. 01/21/17 hgb decreased to 6.6, though no significant clinical changes noted in patient assessment. Iron level -- 80. INR therapeutic today. [id number] reports hx of repeated TIA/stroke and would thinks the risks of being off Coumadin are too high. WBC elevated due to CLL and steroid use. LDH decreased slightly. Total bilirubin trending down - 2.2 today. K has been gradually increasing, up to 5.0 today. She's not on any potassium supplementation or SURINDER/ARB. Home meds reviewed - Lasix (and KDur) have not been restarted - will start Lasix today. Repeat BMP in am. 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 I reviewed the chart, the patient's history, and the DESSERT CUP MACHINE FEEDER/PA's documented findings as above. We discussed and formulated the assessment and plan as above with additions as below: Mrs. Mtz denied dyspnea and chest pain initially but subsequently told me that she had pain in both arms last night and couldn't get a nitroglycerin because it wasn't ordered. She indicated that she has pain in her arm occasionally and it usually goes away immediately with nitroglycerin. Last night's pain was accompanied by mild nausea and some left upper chest pain which she only acknowledged on repeated questioning. Pain resolved after brief period of time spontaneously and has not recurred; there was no associated dyspnea or diaphoresis. She's been ambulatory today and feels pretty good. Jaundice is resolved and there is no scleral icterus present currently. Respirations are nonlabored and breath sounds clear Heart neck rhythm regular Bilirubin has dropped to 2.2 and LDH is down slightly. B 12 664, iron studies consistent with adequate stores. Continue current management, nitroglycerin ordered for when necessary use. Hemoglobin fluctuating slightly but dropping bilirubin suggests hemolysis slowing. Warm autoantibody identified by blood bank-cannot cross match blood. Dr. Paniagua updated. Hospital Course Summary Disclaimer: The visit summary below is not to be considered part of the above Progress Note.
[2017-01-21] MEDS ORDERED: WARFARIN 2.5 MG TABLET PO SCH (12:00)
[2017-01-21] MEDS: FUROSEMIDE 20 MG TABLET PO SCH (12:12)
[2017-01-21] MEDS ORDERED: NITROGLYCERIN 0.4 MG SUBLINGUAL TABLET SL PRN (16:48)
[2017-01-21] MEDS: PRAVASTATIN 20 MG TABLET PO SCH (22:09)
[2017-01-22] MEDS: LEVOTHYROXINE 125 MCG TABLET PO SCH (05:50)
[2017-01-22] MEDS: LORATADINE 10 MG TABLET PO SCH (05:50)
[2017-01-22] MEDS: CARVEDILOL 25 MG TABLET PO SCH (07:52)
[2017-01-22] MEDS: PredniSONE 10 MG TABLET PO SCH (07:52)
[2017-01-22 08:44] VITALS: O2SAT 95
[2017-01-22] MEDS ORDERED: DOCUSATE SODIUM 100 MG CAPSULE PO SCH (09:00)
[2017-01-22] MEDS ORDERED: ASCORBIC ACID 500 MG TABLET PO SCH (09:00)
[2017-01-22] MEDS: POLYETHYL GLYCOL 3350 17gm PACKET PO SCH (09:28)
[2017-01-22] MEDS: SENNA + DOCUSATE TABLET PO SCH (09:28)
[2017-01-22] MEDS: SYSTANE EYE DROPS 0.7ml EACH EYE SCH ×2 (09:29→13:58)
--- NOTE | 2017-01-22 10:16 | Progress Note ---
<Sheila Bowen - Last Filed: 01/22/17 10:13> Subjective: Kateryna is seen today in follow up. She is alert, and seems to be appropriate. Visiting with her [id number]. Reports that she is tired and wants to take a nap. States she woke up at 4am, and has not been to sleep. Reports that she has been up to chair and to the bathroom, so has had a full morning. Denies any pain or SOA. Chart reviewed for collateral information. Objective Vital signs: Temperature 97.2 F 01/22/17 07:30 Pulse Rate 65 01/22/17 07:30 Respiratory Rate 16 01/22/17 07:30 Blood Pressure 132/72 01/22/17 08:30 Pulse Oximetry 95 01/22/17 07:30 Oxygen Delivery Method Room Air Height/Weight/BMI: Weight 75.3 kg - Constitutional Present: no acute distress, well developed, obese, cooperative Comments: Skin is sallow, mild icterus. - Routine HEENT Exam Head: Present: normocephalic, atraumatic Eye: Present: EOMI, PERRL, normal accommodation ENT: Present: mucous membranes moist - Routine Respiratory Exam Present: CTA bilaterally. Absent: rales, rhonchi, wheezes, crackles - Routine Cardiovascular Exam Present: RRR, S1, S2, no murmur - Routine Abdominal Exam Present: soft, normoactive bowel sounds, non distended, non tender - Routine Extremities Exam Present: edema (Trace LE edema. ), non tender - Routine Musculoskeletal Exam Musculoskeletal: Present: no clubbing or cyanosis, no tenderness - Routine Skin Exam Present: dry, warm - Routine Neurological Exam Present: alert, moving all extremities - Routine Psychiatric Exam Present: normal affect, cooperative Results - Labs CBC & Chem 7: 01/22/17 04:17 01/22/17 04:17 Assessment and Plan (1) CLL (chronic lymphoid leukemia) in relapse Status: Acute 01/18/17 21:54 has appointment with Harish Lorenzo on Jan.28, ER contacted him and he recommends no treatment at this time. 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 Paniagua) Generalized weakness/excessive fatigue Jaundice, consistent with hemolytic anemia Hypertension History CAD and CVA paroxysmal Atrial fib HFpEF, diastolic dysfunction (Amirani) Chronic anticoagulation Hypokalemia-not POA Dementia, Alzheimer's Plan: 01/22/17- Unable to transfuse given warm antibody. HGB has been fairly stable. Continue steroids. Monitor for chest pain, SOA- she is feeling well today. She remains on Warfarin due to stroke risk. Pharmacy assist with INR monitoring. Atrial Fib- HR is controlled. Dementia- memory is variable, but she is fairly lucid this morning. Continue supportive care. Palliative care/hospice discussion may be needed prior to discharge. Repeat labs in AM for stability. Sepsis Assessment - Evaluation Sepsis screening result: No Definite Risk Hospital Course Summary Disclaimer: The visit summary below is not to be considered part of the above Progress Note. Hospital Course: 01/19/17 16:39-admission Presentation consistent with evolving anemia; data supports development of hemolytic anemia in conjunction with worsening CLL. Blood bank unable to match blood to date due to antibodies. Discussed with Dr. Paniagua-initiate steroids with prednisone 1 mg/kg in split doses. Will hold off on transfusion at this time. Haptoglobin and reticulocyte count pending. Continue to monitor hemoglobin, IV fluids if needed although oral intake improved this afternoon. Patient is on chronic warfarin therapy-indication unclear at present, call placed to her son to clarify. Continue in the intervening time. Continue beta vazquez for coronary disease/HTN. PT/OT consult Patient converted to inpatient status due to presence of dyspnea in conjunction with worsening anemia. 01/20/17. Continue Prednisone for hemolytic anemia. She is no longer feeling dyspneic, and is more awake today. Hemoglobin has improved slightly to 6.9. Haptoglobin was markedly low at 2 mg/dL, and absolute reticulocyte count was elevated at 0.34, percent reticulocyte was also high at 20.6, immature reticulocyte fraction was high at 34.3. Iron, TIBC and percent sat, and vitamin B12 are pending. Her total bilirubin was not assessed today. White count has increased from 114-146, which is highly suspected to be a steroid effect. Lymphocytes have remained stable. INR still subtherapeutic at 1.76. The patient is on Coumadin for paroxysmal atrial fibrillation. Echocardiogram in 2014 showed an EF of 65%, grade 2, LVDD, mild valvular disease, and mild pulmonary hypertension with pulmonary artery pressure 37 mmHg. Her tower technician is Dr. Madrid. Admission EKG reviewed: She is in sinus rhythm. 01/21/17 hgb decreased to 6.6, though no significant clinical changes noted in patient assessment. Iron level -- 80. INR therapeutic today. [id number]-om-[id number] reports hx of repeated TIA/stroke and would thinks the risks of being off Coumadin are too high. WBC elevated due to CLL and steroid use. LDH decreased slightly. Total bilirubin trending down - 2.2 today. K has been gradually increasing, up to 5.0 today. She's not on any potassium supplementation or SURINDER/ARB. Home meds reviewed - Lasix (and KDur) have not been restarted - will start Lasix today. Repeat BMP in am. I have independently evaluated and examined this patient. I reviewed the chart, the patient's history, and the KNAPSACK SPRAYER/PA's documented findings as above. We discussed and formulated the assessment and plan as above with additions as below: Mrs. Mtz denied dyspnea and chest pain initially but subsequently told me that she had pain in both arms last night and couldn't get a nitroglycerin because it wasn't ordered. She indicated that she has pain in her arm occasionally and it usually goes away immediately with nitroglycerin. Last night's pain was accompanied by mild nausea and some left upper chest pain which she only acknowledged on repeated questioning. Pain resolved after brief period of time spontaneously and has not recurred; there was no associated dyspnea or diaphoresis. She's been ambulatory today and feels pretty good. Jaundice is resolved and there is no scleral icterus present currently. Respirations are nonlabored and breath sounds clear Heart neck rhythm regular Bilirubin has dropped to 2.2 and LDH is down slightly. B 12 664, iron studies consistent with adequate stores. Continue current management, nitroglycerin ordered for when necessary use. Hemoglobin fluctuating slightly but dropping bilirubin suggests hemolysis slowing. Warm autoantibody identified by blood bank-cannot cross match blood. Dr. Paniagua updated. 01/22/17 10:23 01/22/17- Unable to transfuse given warm antibody. HGB has been fairly stable. Continue steroids. Monitor for chest pain, SOA- she is feeling well today. She remains on Warfarin due to stroke risk. Pharmacy assist with INR monitoring. Atrial Fib- HR is controlled. Dementia- memory is variable, but she is fairly lucid this morning. Continue supportive care. Palliative care/hospice discussion may be needed prior to discharge. Repeat labs in AM for stability. 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 I reviewed the chart, the patient's history, and the KNAPSACK SPRAYER/PA's documented findings as above. We discussed and formulated the assessment and plan as above with additions as below: Mrs. Mtz reported she had a busy morning with a number of people visiting. However she's had noted dyspnea or further chest pain. She denied lightheadedness and has had bowel movements. Hemoglobin was 6.9 and has been stable since admission. She is tolerating prednisone well and has had only minor hyperglycemia. Respirations are nonlabored in cardiac rhythm is regular. There is trace lower extremity edema. The patient is alert and pleasant. Given stable hemoglobin and indication that hemolysis is slowed by dropping bilirubin and resolution of jaundice have recommended that patient discharged home to [facility] and continue therapy with prednisone there with follow- up with Dr. Paniagua next week to initiate more definitive therapy for CLL. INR was slightly higher than desirable today so warfarin will be held for 2 days and then resumed if INR is less than 2.5. Please refer to discharge summary. Hospital Course Summary Disclaimer: The visit summary below is not to be considered part of the above Progress Note.
[2017-01-22] MEDS: FUROSEMIDE 20 MG TABLET PO SCH (10:21)
[2017-01-22] MEDS: RANITIDINE 150 MG TABLET PO SCH (10:21)
[2017-01-22] MEDS: MAGNESIUM OXIDE 400 MG TABLET PO SCH (10:21)
--- NOTE | 2017-01-22 10:36 | Pharmacy Consult ---
Pharmacy Consult-Warfarin - Laboratory Information 01/20/17 01/21/17 01/22/17 04:30 04:01 04:17 INR 1.76 H 2.25 H 3.09 H - Consult Information goal INR= 2.0-3.0 today's INR=3.09. Significant jump in INR over past 2 days. Will give no Warfarin dose today. Pharmacy will monitor and adjust as needed. Thank you for the Warfarin dosing protocol, Digna Eubanks RPh
--- NOTE | 2017-01-22 14:25 | Discharge Instructions ---
Discharge Plan - Med Rec/Dispo Referrals/Follow Up: Clinton Paniagua MD [Physician] - (Next week) Lavonne Faust DO [Family Provider] - (1-2 weeks) Radha Instructions: Blood Transfusion (GEN) Prescriptions: New Senna + Docusate [Senna Plus Tablet] 2 tab PO DAILY tablet PredniSONE [Deltasone] 30 mg PO BIDWM #100 tab Continue Ascorbic Acid [Vitamin C] 1,000 mg PO DAILY #0 Pravastatin Sodium 20 mg PO HS #0 Carvedilol 12.5 mg PO BID #0 Acetaminophen [Tylenol] 650 mg PO HS #0 Levothyroxine Sodium 125 mcg PO ACB #0 Bismuth Subsalicylate [Kaopectate] 1 oz PO TID PRN #0 PRN Reason: DIARRHEA Hydralazine [Apresoline] 10 mg PO Q8HPRN PRN PRN Reason: Hypertension Ranitidine [Zantac] 150 mg PO BID Oxybutynin Ir [Ditropan] 5 mg PO BID Sodium Chloride [Yolyn Saline] 2 spray NS BID Multivitamin with Minerals [One-A-Day Maximum Formula] 1 each PO DAILY Warfarin Sodium 2 mg PO 1700 #0 Furosemide 20 mg PO DAILY #0 Loratadine 10 mg PO ACB #0 Magnesium Oxide 250 mg PO DAILY #0 tab Acetaminophen [Tylenol] 325 mg PO BID #0 Propylene Glycol/Peg 400/Pf [Systane Ultra 0.4-0.3% Eye Drp] 1 drop BOTH EYES QID #0 Tramadol HCl 50 mg PO Q6HR PRN #0 PRN Reason: PAIN FRUIT FIBER 30 ml PO WB #0 Bisacodyl 1 supp RECTALLY DAILY PRN #0 PRN Reason: Constipation Naphazoline/Zinc Sulf/Glycerin [Clear Eyes Itchy Eye Rlf Drops] 1 drop BOTH EYES PRN PRN #0 PRN Reason: Prn Orders Mag Hydrox/Aluminum Hyd/Simeth [Maalox Advanced Suspension] 15 ml PO QID PRN #0 PRN Reason: INDIGESTION Meclizine HCl 25 mg PO Q8H PRN #0 PRN Reason: DIZZINESS Magnesium Hydroxide [Milk of Magnesia] 10 ml PO Q3D PRN #0 PRN Reason: CONSTIPATION Nitroglycerin 0.4 mg SL PRN PRN #0 PRN Reason: CHEST TIGHTNESS Calcium Carbonate [Tums] 1 tab PO Q4H PRN #0 PRN Reason: INDIGESTION Albuterol/Ipratropium [Duoneb] 1 unit AEROSOL Q6H PRN PRN Reason: Prn Orders Melatonin/Pyridoxine HCl (B6) [Melatonin 5 mg Tablet] 5 mg PO HS PRN PRN Reason: Insomnia Discontinued Potassium Chloride 10 meq PO DAILY #0 Docusate Sodium [Colace] 100 mg PO DAILY #0 Discharge Instructions/Outpatient Orders: Final Provider Discharge Instructions Location: Determined By Patient - Disposition 03 To SN[facility] Not [facility] ([facility])
--- NOTE | 2017-01-22 14:40 | Extended Care Facility Orders ---
Admission Orders Admit to:: [facility] Allergies/Adverse Reactions: Allergies codeine Allergy (Unknown, Verified 01/18/17 17:53) Admitting Diagnosis: Hemolytic Anemia Admitting Physician: Oksana Carey MD Attending Physician: Oksana Carey MD Code Status: Do Not Resuscitate Anticiapted Length of Stay: 30 days or less Rehab Potential: good Rehab Prognosis: good Diet: regular May use Facility Protocol or Standing Orders: Yes May have flu vaccine: Yes Evaluations/Treatment: PT, OT [facility] Certification: I certify that SNF services are required to be given on an Inpatient basis because of the patients need for longterm care on a continuing basis for the condition(s) for which he/she received inpatient hospital services prior to his/her transfer to the SNF. SNF inpatient care is necessary for the following reasons Indication for [facility]: Assess Anticoagulation Therapy, Other (monitor for signs/symptoms of anemia) - Additional Information In Event of Arrest: Do Not Start CPR Resident is Aware of Diagnosis: Yes Referrals: Clinton Paniagua MD [Physician] - (Next week) Lavonne Faust DO [Family Provider] - (1-2 weeks) Additional Orders: Patient needs to see Dr. Paniagua next week (01/24-01/28). Hold warfarin 01/22 and 01/23; if INR <2.5 on 01/24 may resume at prior dose of 2 mg per day. INR, CBC on 01/24-diagnoses D59.4 for CBC, whatever you normally use for INR. Last hemoglobin 6.9 on 01/22-critical patient continues prednisone at 30 mg twice a day; cannot transfuse blood due to antibodies.
[2017-01-22 16:44] VITALS: BP 98/53; PULSE 62; RESP 20; TEMP 98.4
--- NOTE | 2017-01-22 19:07 | Discharge Summary ---
Discharge Information Date of admission: 01/19/17 12:54 Anticipated date of discharge: 01/22/17 Attending Physician: Oksana Carey MD Primary care physician: Lavonne Faust DO Consults: - Discharge Diagnosis Discharge Diagnosis: Autoimmune hemolytic anemia CLL - Laboratory Labs: Admission labs (01/18/17) included white count of 132.4 with 5% neutrophils, 94% lymphocytes, 1% monocyte, hemoglobin 7.2, hemoglobin 23.4 MCV 125.8, platelet count 250 K; INR 1.91; creatinine 1.5, normal electrolytes, bilirubin 4.2, AST 76, ALT 36. Additional studies obtained during the hospital course include: LDH 2465, reticulocyte count 20.6%, haptoglobin 2, serum iron 80 with TIBC 264 and saturation 30%, vitamin B 12 664, and follow-up liver enzymes on 01/21 with total bilirubin 2.2 and AST 44, LDH slightly improved at 2292 on the . 01/22/17 04:17 01/22/17 04:17 - Radiology Radiology: Chest x-ray on 01/18-NAD History of Present Illness HPI: The pt is a 81 yo with a known history of CLL monitored by Dr. Clinton Paniagua with last labs on 12/28/16 when WBC was elevated at 85.9K and hemoglobin was 10.8. Over the past 3 days the pt has c/o sleeping all the time and is having generalized weakness, become dyspneic with minimal exertion. She additionally reports that her urine has been dark yellow and that her skin has been yellow. She denied lightheadedness, chest pain, palpitations, or falls. She is not aware of any blood loss specifically denying melena, hematuria, or hematemesis. She denies any of the presenting symptoms prior to 3 days ago. In the emergency room hemoglobin was 7.2 and the patient was hospitalized for symptomatic anemia and possible blood transfusion. Bilirubin on admission was elevated at 4.2 and MCV 125.8. White count had increased to 132.4 with 94% lymphocytes. Hospital Course This is a general summary of the patient's hospital course. For more details refer to the complete medical record. Hospital course: Autoimmune hemolytic anemia CLL, in relapse Generalized weakness/excessive fatigue Jaundice, consistent with hemolytic anemia Hypertension History CAD and CVA paroxysmal Atrial fib HFpEF, diastolic dysfunction ([place]) Chronic anticoagulation Dementia, Alzheimer's [facility] course: Mrs. Mtz presentation consistent with evolving anemia; data supported development of hemolytic anemia in conjunction with worsening CLL. Blood bank unable to match blood to date due to antibodies. Discussed with Dr. Paniagua- initiate steroids with prednisone 1 mg/kg in split doses. Will hold off on transfusion at this time. Haptoglobin, LDH, and reticulocyte counts subsequently obtained and compatible with diagnosis of hemolytic anemia. Hemoglobin remained relatively stable varying between 6.6 and 6.9 over subsequent days with no indication of clinical deterioration. In fact the patient felt clinically improved with resolution of fatigue and hypersomnolence following initiation of steroids. Jaundice resolved and bilirubin was dropping on follow-up testing suggesting slowing of hemolysis. The blood bank reported identification of a warm autoantibody and the blood could not be crossmatched. Iron stores and B-12 levels were assessed during the hospital course, both were normal. The patient's family reported use of warfarin due to history of strokes in the past and that discontinuation of warfarin had led to recurrent strokes/TIA. Subsequently warfarin was continued with goal of keeping INR in the low therapeutic range. On the date of discharge the INR was 3.09 and warfarin will be held for 2 days with INR to be reassessed on 01/24. Warfarin will be resumed at 2 mg daily if INR is less than 2.5 at that time. The patient has a history of hypokalemia (due to diuretic use) which was not present on admission. Potassium trended upward during hospital course after initiation of prednisone in her usual potassium supplement was discontinued during the hospital stay. On 01/22 the patient felt well and was felt stable for discharge back to [facility] with continued treatment with prednisone 30 mg twice a day. She will follow-up with Dr. Paniagua next week to initiate more definitive therapy for CLL. INR was slightly higher than desirable today so warfarin will be held for 2 days and then resumed if INR is less than 2.5. CBC will be reassessed on 01/24. Patient is asked to follow-up with Dr. Castaneda in 1-2 weeks for general follow-up. Time spent with patient: discharge greater than 30 minutes Discharge Plan - Med Rec/Dispo Referrals/Follow Up: Clinton Paniagua MD [Physician] - (Next week) Lavonne Faust DO [Family Provider] - (1-2 weeks) Radha Instructions: Blood Transfusion (GEN) Prescriptions: New Senna + Docusate [Senna Plus Tablet] 2 tab PO DAILY tablet PredniSONE [Deltasone] 30 mg PO BIDWM #100 tab Continue Ascorbic Acid [Vitamin C] 1,000 mg PO DAILY #0 Pravastatin Sodium 20 mg PO HS #0 Carvedilol 12.5 mg PO BID #0 Acetaminophen [Tylenol] 650 mg PO HS #0 Levothyroxine Sodium 125 mcg PO ACB #0 Bismuth Subsalicylate [Kaopectate] 1 oz PO TID PRN #0 PRN Reason: DIARRHEA Hydralazine [Apresoline] 10 mg PO Q8HPRN PRN PRN Reason: Hypertension Ranitidine [Zantac] 150 mg PO BID Oxybutynin Ir [Ditropan] 5 mg PO BID Sodium Chloride [Henderson Saline] 2 spray NS BID Multivitamin with Minerals [One-A-Day Maximum Formula] 1 each PO DAILY Warfarin Sodium 2 mg PO 1700 #0 Furosemide 20 mg PO DAILY #0 Loratadine 10 mg PO ACB #0 Magnesium Oxide 250 mg PO DAILY #0 tab Acetaminophen [Tylenol] 325 mg PO BID #0 Propylene Glycol/Peg 400/Pf [Systane Ultra 0.4-0.3% Eye Drp] 1 drop BOTH EYES QID #0 Tramadol HCl 50 mg PO Q6HR PRN #0 PRN Reason: PAIN FRUIT FIBER 30 ml PO WB #0 Bisacodyl 1 supp RECTALLY DAILY PRN #0 PRN Reason: Constipation Naphazoline/Zinc Sulf/Glycerin [Clear Eyes Itchy Eye Rlf Drops] 1 drop BOTH EYES PRN PRN #0 PRN Reason: Prn Orders Mag Hydrox/Aluminum Hyd/Simeth [Maalox Advanced Suspension] 15 ml PO QID PRN #0 PRN Reason: INDIGESTION Meclizine HCl 25 mg PO Q8H PRN #0 PRN Reason: DIZZINESS Magnesium Hydroxide [Milk of Magnesia] 10 ml PO Q3D PRN #0 PRN Reason: CONSTIPATION Nitroglycerin 0.4 mg SL PRN PRN #0 PRN Reason: CHEST TIGHTNESS Calcium Carbonate [Tums] 1 tab PO Q4H PRN #0 PRN Reason: INDIGESTION Albuterol/Ipratropium [Duoneb] 1 unit AEROSOL Q6H PRN PRN Reason: Prn Orders Melatonin/Pyridoxine HCl (B6) [Melatonin 5 mg Tablet] 5 mg PO HS PRN PRN Reason: Insomnia Discontinued Potassium Chloride 10 meq PO DAILY #0 Docusate Sodium [Colace] 100 mg PO DAILY #0 Discharge Instructions/Outpatient Orders: Final Provider Discharge Instructions Location: Determined By Patient - Disposition 03 To [facility])
== END 2017-01-22 17:20 | DRG 809 ==
LOC: ED 17:48 → MED 17:48
PROVIDERS: ADMIT Internal Medicine; ATTEND Internal Medicine